=== PATIENT | male | born 1995 | race Caucasian/White ===

== ENCOUNTER 2020-04-05 20:13 | Emergency (ER) | payer MEDICAID ==
[~2020-04-05] VITALS: Ht 170.2 cm; Wt 95.2 kg
--- NOTE | 2020-04-05 20:41 | NUR ---
cc of swelling in face on right side from tooth. pt states he has had issues with same tooth in past and has had root canal and abscess that was drained on that side. rates pain 9/. ovbious swelling noted on right upper cheek. pt took an oxy for pain that he states "helped a little bit". pt also takes xanax for anxiety.
[2020-04-05] MEDS ORDERED: CLINDAMYCIN 300 MG CAPSULE PO ONE (21:00)
[2020-04-05] MEDS ORDERED: KETOROLAC 30 MG/1 ML IVPush ONE (21:00)
[2020-04-05] MEDS ORDERED: SODIUM CHLORIDE FLUSH 10ML SYR IVF ONE (21:00)
[2020-04-05] MEDS ORDERED: KETOROLAC 30 MG/1 ML ONE (21:06)
[2020-04-05] MEDS ORDERED: CLINDAMYCIN 300 MG CAPSULE ONE (21:06)
[2020-04-05 21:09] LABS: BASOPHILS % (AUTO) 1 % (0-1); EOSINOPHILS % (AUTO) 2 % (1-7); LYMPHOCYTES % (AUTO) 28 % (22-44); MEAN CORPUSCULAR HEMOGLOBIN 29.6 pg (27.5-34.5); MEAN CORPUSCULAR HGB CONC 33.9 g/dL (33.2-36.2); MEAN PLATELET VOLUME 7.1 fL (7.4-10.4); MONOCYTES % (AUTO) 7 % (2-9); NEUTROPHILS % (AUTO) 63 % (42-75); PLATELET COUNT 286 x10^3/uL (130-400); RED BLOOD COUNT 4.75 x10^6/uL (4.38-5.82); RED CELL DISTRIBUTION WIDTH 13.6 % (9.4-14.8)
[2020-04-05 21:11] LABS: MD NO
[2020-04-05] MEDS ORDERED: LIDOCAINE-MPF 1%, 5ML ONE (21:19)
[2020-04-05 21:20] LABS: ANION GAP 5 mmol/L (5-15); CHLORIDE 108 mmol/L (98-107); CREATININE 1.17 mg/dL (0.7-1.3)
--- NOTE | 2020-04-05 22:07 | NUR ---
PT SITTING IN GURNEY WITH SUCTION TO HELP WITH DRAINAGE FROM CHEEK. PT REPORTING FEELING BETTER.
[2020-04-05 22:16] VITALS: BP 102/75
== END 2020-04-05 22:32 | disposition home or self-care (01) ==
LOC: ED 22:00
DX: K08.89 Other specified disorders of teeth and supporting structures (principal)
CPT/HCPCS: 36415; 64400; 80048; 82040; 85025; 96374; 99285; J1885

== ENCOUNTER 2020-04-06 09:31 | Emergency (ER) | payer SELFPAY ==
[~2020-04-06] VITALS: Ht 170.2 cm; Wt 93.0 kg
[2020-04-06 09:34] VITALS: BP 129/72
--- NOTE | 2020-04-06 10:00 | NUR ---
PROVIDER AT BEDSIDE
--- NOTE | 2020-04-06 10:05 | NUR ---
PT COMES IN TODAY FOR RECHECK OF RIGHT FACIAL SWELLING. PROVIDER AT BEDSIDE. PT ENCOURAGED BY PROVIDER TO [employer]INEER ORDERED ABX. PT STATES SWELLING AND PAIN "BETTER TODAY".
--- NOTE | 2020-04-06 10:35 | NUR ---
PT AMBULATED TO DISCHARGE WITH STEADY GAIT. PT ENCOURAGED TO FOLLOW-UP DISCUSSED. PT EDUCATED TO RETURN TO THE ED WITH WORSENING SYMPTOMS. PT EDUCATED TO CALL FOR RX CONCERNS PER PROVIDER. PT VERBALIZES UNDERSTANDING.
== END 2020-04-06 10:36 | disposition home or self-care (01) ==
LOC: ED 10:18
DX: K02.9 Dental caries, unspecified (principal); R22.0 Localized swelling, mass and lump, head; Z79.899 Other long term (current) drug therapy
CPT/HCPCS: 99281

== ENCOUNTER 2020-08-18 10:29 | Emergency (ER) | payer OTHER ==
[~2020-08-18] VITALS: Ht 170.2 cm; Wt 92.5 kg
--- NOTE | 2020-08-18 11:01 | NUR ---
RECIEVED REPORT FROM SAYDA
--- NOTE | 2020-08-18 11:01 | NUR ---
Pt states "I've been having stomach problems for years, like a fire in my belly." Pt states "I just need a doctor's note for today, because I couldn't make it through the day." Pt states his psychiatrist ordered lab work 6-7 months ago and he was told he is "pre-diabetic." Pt had no abd tenderness on palpation. Pt states he "hasn't had a solid BM in months, sometimes it's black." Pt educated about clean catch UA should he need to urinate. Pt connected to BP and O2 monitors, call light in reach. Bedside report to MAX Pastor, to assume full care.
--- NOTE | 2020-08-18 11:10 | NUR ---
pt resting in bed. attached to monitors. pt in nad. vss. call light within reach
--- NOTE | 2020-08-18 11:13 | NUR ---
PT AMBULATED TO BATHROOM TO ATTEMPT UA. TOLERATED WALK WELL.
[2020-08-18] MEDS ORDERED: MAALOX/HYOSCYAMINE/LIDOCAINE 45 ML BTL PO ONE (11:30)
[2020-08-18] MEDS ORDERED: MAALOX/HYOSCYAMINE/LIDOCAINE 45 ML BTL ONE (11:32)
--- NOTE | 2020-08-18 11:35 | NUR ---
PT AMBULATED BACK TO ROOM. BINDER LOCKSTITCH AT BEDSIDE. PT ATTACHED TO MONITORS. VSS
[2020-08-18 11:41] LABS: BASOPHILS % (AUTO) 1 % (0-1); EOSINOPHILS % (AUTO) 2 % (1-7); LYMPHOCYTES % (AUTO) 32 % (22-44); MEAN CORPUSCULAR HEMOGLOBIN 30.1 pg (27.5-34.5); MEAN CORPUSCULAR HGB CONC 34.4 g/dL (33.2-36.2); MEAN PLATELET VOLUME 7.4 fL (7.4-10.4); MONOCYTES % (AUTO) 6 % (2-9); NEUTROPHILS % (AUTO) 59 % (42-75); PLATELET COUNT 253 x10^3/uL (130-400)
[2020-08-18 11:42] LABS: MD NO
[2020-08-18 11:53] LABS: ALANINE AMINOTRANSFERASE 32 U/L (12-78); ALBUMIN 4.2 g/dL (3.4-5.0); ANION GAP 5 mmol/L (5-15); CALCIUM 8.9 mg/dL (8.5-10.1); CHLORIDE 108 mmol/L (98-107); CREATININE 1.03 mg/dL (0.7-1.3)
[2020-08-18 11:56] LABS: ALKALINE PHOSPHATASE 76 U/L (45-117); BILIRUBIN,TOTAL 0.5 mg/dL (0.2-1.0)
[2020-08-18 12:50] VITALS: BP 116/57
== END 2020-08-18 12:52 | disposition home or self-care (01) ==
LOC: ED 12:46
DX: K21.9 Gastro-esophageal reflux disease without esophagitis (principal); Z87.11 Personal history of peptic ulcer disease
CPT/HCPCS: 36415; 80053; 83690; 85025; 99283

== ENCOUNTER 2020-11-19 10:56 | Emergency (ER) | payer SELFPAY ==
[~2020-11-19] VITALS: Ht 170.2 cm; Wt 85.5 kg
[2020-11-19 11:49] VITALS: BP 128/97
== END 2020-11-19 13:12 | disposition home or self-care (01) ==
LOC: ED 11:58
DX: U07.1 COVID-19 (principal); J06.9 Acute upper respiratory infection, unspecified; K21.9 Gastro-esophageal reflux disease without esophagitis
CPT/HCPCS: 99283; U0003; U0005